=== PATIENT | female | born 1995 | race African-American/Black ===

== ENCOUNTER 2019-01-08 22:22 | Emergency (ER) ==
[2019-01-08 22:54] LABS: Urine Blood 1+ (NEG); Urine Glucose NEGATIVE (NEG); Urine Protein NEGATIVE (NEG); Urine Specific Gravity 1.025 (1.005-1.030); Urine pH 7.5 (5.0-7.0)
--- NOTE | 2019-01-08 23:28 | EDPHYS ---
Physician Documentation [facility] Name: Tracey Adam Age: 23 yrs Sex: Female : 1995 Arrival Date: 01/08/2019 Time: 22:26 Bed 7 Private MD: ED Physician Emir Alfred HPI: 01/08 23:26 This 23 yrs old Black Female presents to ER via Ambulatory with complaints of Vaginal snw Bleeding. 23:26 The patient presents with vaginal discharge, that is a small amount of. Onset: The snw symptoms/episode began/occurred suddenly, 1 week(s) ago. Modifying factors: The symptoms are alleviated by nothing, the symptoms are aggravated by nothing. Severity of symptoms: At their worst the symptoms were very mild. The patient's method of control includes nothing. The patient has experienced similar episodes in the past, multiple times. The patient has not recently seen a physician. no pain, no fever, no distress, no emergency. 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 - Social history:: Smoking status: Patient/guardian denies using tobacco, Patient/guardian denies using alcohol, street drugs. - Ebola Screening: : Patient negative for fever greater than or equal to 101.5 degrees Fahrenheit, and additional compatible Ebola Virus Disease symptoms Patient denies exposure to infectious person Patient denies travel to an Ebola-affected area in the 21 days before illness onset. ROS: 23:24 Positive for vaginal bleeding, menstrual abnormality. snw 23:24 Constitutional: Negative for fever, chills, and weight loss, Eyes: Negative for injury, pain, redness, and discharge, ENT: Negative for injury, pain, and discharge, Neck: Negative for injury, pain, and swelling, Cardiovascular: Negative for chest pain, palpitations, and edema, Respiratory: Negative for shortness of breath, cough, wheezing, and pleuritic chest pain, Abdomen/GI: Negative for abdominal pain, nausea, vomiting, diarrhea, and constipation, Back: Negative for injury and pain, MS/Extremity: Negative for injury and deformity, Skin: Negative for injury, rash, and discoloration, Neuro: Negative for headache, weakness, numbness, tingling, and seizure, Psych: Negative for depression, anxiety, suicide ideation, homicidal ideation, and hallucinations. 23:24 : Positive for usually has one period per year. No eval for infertility. Pt states she has had menses x 1 week, no pain, one pad daily. Exam: 23:24 Constitutional: This is a well developed, well nourished patient who is awake, alert, snw and in no acute distress. Head/Face: Normocephalic, atraumatic. Eyes: Pupils equal round and reactive to light, extra-ocular motions intact. Lids and lashes normal. Conjunctiva and sclera are non-icteric and not injected. Cornea within normal limits. Periorbital areas with no swelling, redness, or edema. ENT: Nares patent. No nasal discharge, no septal abnormalities noted. Tympanic membranes are normal and external auditory canals are clear. Oropharynx with no redness, swelling, or masses, exudates, or evidence of obstruction, uvula midline. Mucous membranes moist. Neck: Trachea midline, no thyromegaly or masses palpated, and no cervical lymphadenopathy. Supple, full range of motion without nuchal rigidity, or vertebral point tenderness. No Meningismus. Chest/axilla: Normal chest wall appearance and motion. Nontender with no deformity. No lesions are appreciated. Cardiovascular: Regular rate and rhythm with a normal S1 and S2. No gallops, murmurs, or rubs. Normal PMI, no JVD. No pulse deficits. Respiratory: Lungs have equal breath sounds bilaterally, clear to auscultation and percussion. No rales, rhonchi or wheezes noted. No increased work of breathing, no retractions or nasal flaring. Abdomen/GI: Soft, non-tender, with normal bowel sounds. No distension or tympany. No guarding or rebound. No evidence of tenderness throughout. Back: No spinal tenderness. No costovertebral tenderness. Full range of motion. Skin: Warm, dry with normal turgor. Normal color with no rashes, no lesions, and no evidence of cellulitis. MS/ Extremity: Pulses equal, no cyanosis. Neurovascular intact. Full, normal range of motion. Neuro: Awake and alert, GCS 15, oriented to person, place, time, and situation. Cranial nerves II-XII grossly intact. Motor strength 5/5 in all extremities. Sensory grossly intact. Cerebellar exam normal. Normal gait. Psych: Awake, alert, with orientation to person, place and time. Behavior, mood, and affect are within normal limits. Vital Signs: 22:30 BP 112 / 86; Pulse 75; Resp 18; Temp 97.5(O); Pulse Ox 100% on R/A; Weight 45.36 kg fc (R); Height 4 ft. 11 in. (149.86 cm) (R); Pain 0/10; 22:30 Body Mass Index 20.20 (45.36 kg, 149.86 cm) MDM: 22:53 Patient medically screened. snw 01/08 22:48 Order name: Urine Dipstick--Ancillary (enter results); Complete Time: 22:54 cm6 01/08 22:48 Order name: Urine --Ancillary (enter results); Complete Time: 22:54 cm6 Administered Medications: No medications were administered Disposition: 01/09 03:12 Co-signature as Attending Physician, Emir Alfred MD. rn Disposition: 01/08/19 23:27 Discharged to Home. Impression: Encounter for screening, unspecified. - Condition is Stable. - Medication Reconciliation Form, Thank You Letter, Antibiotic Education, Prescription Opioid Use form. - Follow up: Private Physician; When: 2 - 3 days; Reason: Recheck today's complaints, Continuance of care, Re-evaluation by your physician. Signatures: Dispatcher [employer]DL[employer]us Suazo, MECHANICAL PROJECT MANAGER-C MECHANICAL PROJECT MANAGER-Csnw Millie Penny RN RN Emir Alfred MD MD rn Antunez, Elena, RN RN ea Corrections: (The following items were deleted from the chart) 01/08 23:27 23:27 01/08/2019 23:27 Discharged to Home. Impression: Encounter for screening, ea unspecified. Condition is Stable. Forms are Medication Reconciliation Form, Thank You Letter, Antibiotic Education, Prescription Opioid Use. Follow up: Private Physician; When: 2 - 3 days; Reason: Recheck today's complaints, Continuance of care, Re-evaluation by your physician. snw
--- NOTE | 2019-01-08 23:28 | ER ---
Nurse's Notes [facility] Name: Tracey Adam Age: 23 yrs Sex: Female : 1995 Arrival Date: 01/08/2019 Time: 22:26 Bed 7 Private MD: Diagnosis: Encounter for screening, unspecified Presentation: 01/08 22:30 Presenting complaint: Patient states: that she has been having vaginal bleeding x 2 fc weeks. Going thru 1 pad a day. She is concerned because she only has approx 1 period a year and is usually lasts for 1 week. Last period she can remember was last August. Denies any pain. Transition of care: patient was not received from another setting of care. Onset of symptoms was December 26, 2018. Risk Assessment: Do you want to hurt yourself or someone else? Patient reports no desire to harm self or others. Initial Sepsis Screen: Does the patient meet any 2 criteria? No. Patient's initial sepsis screen is negative. Does the patient have a suspected source of infection? No. Patient's initial sepsis screen is negative. Care prior to arrival: None. 22:30 Method Of Arrival: Ambulatory 22:30 Acuity: SEAN 4 Triage Assessment: 22:30 General: Appears in no apparent distress. comfortable, slender, well groomed, Behavior fc is calm, cooperative, appropriate for age. Pain: Denies pain. EENT: No deficits noted. Neuro: Level of Consciousness is awake, alert, obeys commands, Oriented to person, place, time, situation, Appropriate for age. Cardiovascular: No deficits noted. Respiratory: No deficits noted. GI: No deficits noted. : Reports vaginal bleeding that is going thru 1 pad a day. Derm: Skin is pink, warm \T\ dry. Musculoskeletal: Circulation, motion, and sensation intact. Capillary refill < 3 seconds, Range of motion: intact in all extremities. VP SOFTWARE SUPPORT: 22:30 LMP 12/26/2018 fc 23:26 0 snw Historical: - Allergies: 22:51 No Known Allergies; fc - Home Meds: 22:51 None [Active]; fc - PMHx: 22:51 None; fc - PSHx: 22:51 None; fc - Immunization history:: Last tetanus immunization: up to date Flu vaccine is not up to date. - Social history:: Smoking status: Patient/guardian denies using tobacco, Patient/guardian denies using alcohol, street drugs. - Ebola Screening: : Patient negative for fever greater than or equal to 101.5 degrees Fahrenheit, and additional compatible Ebola Virus Disease symptoms Patient denies exposure to infectious person Patient denies travel to an Ebola-affected area in the 21 days before illness onset. Screenin:30 Abuse screen: Denies threats or abuse. Nutritional screening: No deficits noted. Tuberculosis screening: No symptoms or risk factors identified. Fall Risk None identified. Assessment: 22:55 Reassessment: Lexus QUARRY WORKER in to see and examine pt. Pt to be medically screened. 22:59 Reassessment: Pt declined treatment. fc 23:21 : Reports vaginal bleeding that is pt c/o vaginal bleeding but stated she only has a ak1 period once a year and her period was in August. pt was medically screened and declined treatment. Vital Signs: 22:30 BP 112 / 86; Pulse 75; Resp 18; Temp 97.5(O); Pulse Ox 100% on R/A; Weight 45.36 kg fc (R); Height 4 ft. 11 in. (149.86 cm) (R); Pain 0/10; 22:30 Body Mass Index 20.20 (45.36 kg, 149.86 cm) ED Course: 22:26 Patient arrived in ED. cl3 22:30 Arm band placed on Patient placed in an exam room, on a stretcher. fc 22:30 Patient has correct armband on for positive identification. Bed in low position. Call fc light in reach. 22:48 Triage completed. fc 22:52 Lexus Gomes FNP-C is PHCP. snw 22:52 Emir Alfred MD is Attending Physician. snw 23:21 Shanon Suresh, TRACE is Primary Nurse. ak1 23:21 No provider procedures requiring assistance completed. Patient did not have IV access fc during this emergency room visit. Administered Medications: No medications were administered Outcome: 23:23 Medical screen evaluation completed per provider. Patient declined treatment. ak1 23:25 Condition: stable ea 23:25 Following a medical screening exam, the patient was provided information regarding alternative care sites and resources available per registration personnel. 23:27 Discharge ordered by . snw 23:27 Patient left the ED. ea Signatures: Lexus Gomes, MANAGER PROCESS EXCELLENCE-C MANAGER PROCESS EXCELLENCE-Csnw Millie Penny, RN RN Shanon Woods RN RN ak1 Ana Maria Blackmon RN RN Doroteo Go cl3
== END 2019-01-08 23:27 | disposition home or self-care (01) ==
LOC: ER 22:22
DX: Z13.9 Encounter for screening, unspecified (principal)
CPT/HCPCS: 81003; 81025; 99281

== ENCOUNTER 2020-09-23 13:28 | Emergency (ER) | payer SELFPAY ==
--- NOTE | 2020-09-23 16:32 | ER ---
Nurse's Notes [facility] Name: Tracey Adam Age: 25 yrs Sex: Female : 1995 Arrival Date: 09/23/2020 Time: 13:31 Bed External Waiting Private MD: Diagnosis: Presentation: 09/23 13:56 Chief complaint: Lower abdominal pain that radiates to back and left groin x 4 days. hb Denies N/V/D/fever/injury/urinary s/s. Coronavirus screen: At this time, the client does not indicate any symptoms associated with coronavirus-19. Ebola Screen: No symptoms or risks identified at this time. Risk Assessment: Do you want to hurt yourself or someone else? Patient reports no desire to harm self or others. Onset of symptoms was September 19, 2020. 13:56 Method Of Arrival: Ambulatory hb 13:56 Acuity: SEAN 3 hb Historical: - Allergies: 13:58 No Known Allergies; hb - Home Meds: 13:58 None [Active]; hb - PMHx: 13:58 None; hb - PSHx: 13:58 None; hb - Immunization history:: Client reports receiving the 2nd dose of the Covid vaccine, Flu vaccine is up to date. - Social history:: Smoking status: Patient denies any tobacco usage or history of. Assessment: 16:29 Reassessment: Called to exam room. No answer. Unable to locate patient. ss 16:30 Reassessment: Registration staff states that they witnessed patient leave ER for ss reasons unknown and that she has not returned. Vital Signs: 13:56 BP 114 / 75; Pulse 68; Resp 16; Temp 98; Pulse Ox 97% on R/A; Pain 6/10; hb ED Course: 13:31 Patient arrived in ED. rg4 13:58 Triage completed. hb 13:58 Arm band placed on. hb 16:31 No provider procedures requiring assistance completed. Patient did not have IV access ss during this emergency room visit. Administered Medications: No medications were administered Outcome: 16:31 Eloped from waiting room. ss 16:31 Patient left the ED. ss Signatures: Mary Amin RN RN Tyra Lopez RN RN Brooklyn Horan rg4
[2020-09-23 16:58] VITALS: BP 114/75; TEMP 98; O2SAT 97
== END 2020-09-23 16:31 | disposition left against medical advice (07) ==
LOC: ER 13:28
DX: Z20.822 Contact with and (suspected) exposure to COVID-19 (principal)
CPT/HCPCS: 99281

== ENCOUNTER 2021-09-08 18:06 | Emergency (ER) | payer BC, SELFPAY ==
--- NOTE | 2021-09-08 19:00 | ER ---
Nurse's Notes [facility] Name: Tracey Adam Age: 26 yrs Sex: Female : 1995 Arrival Date: 09/08/2021 Time: 18:08 Bed 9 Private MD: Diagnosis: Acute serous otitis media, right ear Presentation: 09/08 18:58 Chief complaint: Patient states: Decreased hearing to bilateral ears that began 2 days ss ago. Coronavirus screen: Client denies travel out of the [place] in the last 14 days. Ebola Screen: Patient denies exposure to infectious person. Patient denies travel to an Ebola-affected area in the 21 days before illness onset. Initial Sepsis Screen: Does the patient meet any 2 criteria? No. Patient's initial sepsis screen is negative. Does the patient have a suspected source of infection? No. Patient's initial sepsis screen is negative. Risk Assessment: Do you want to hurt yourself or someone else? Patient reports no desire to harm self or others. Onset of symptoms was September 06, 2021. 18:58 Method Of Arrival: Ambulatory ss 18:58 Acuity: SEAN 5 ss Triage Assessment: 19:21 General: Appears Behavior is calm, cooperative, appropriate for age. [facility] ANALYSIS CONSULTANT: 19:21 LMP N/A - control method [facility] Historical: - Allergies: 18:59 No Known Allergies; ss - Home Meds: 18:59 None [Active]; ss - PMHx: 18:59 Ovarian cyst; ss - PSHx: 18:59 None; ss - Immunization history:: Client reports receiving the 2nd dose of the Covid vaccine. - Social history:: Smoking status: Patient denies any tobacco usage or history of. Screenin:15 Abuse screen: Denies threats or abuse. Nutritional screening: No deficits noted. [facility] Tuberculosis screening: No symptoms or risk factors identified. Fall Risk None identified. Assessment: 19:15 Reassessment: No changes from previously documented assessment. Pain: Denies pain. [facility] EENT: No deficits noted. Vital Signs: 18:58 BP 127 / 82; Pulse 84; Resp 14; Temp 98.1(TE); Pulse Ox 100% on R/A; Weight 52.62 kg; ss Height 4 ft. 11 in. (149.86 cm); Pain 0/10; 19:15 BP 122 / 68; Pulse 78; Resp 18; Pulse Ox 100% on R/A; bh1 18:58 Body Mass Index 23.43 (52.62 kg, 149.86 cm) ED Course: 18:08 Patient arrived in ED. as 18:08 uEgenio Mckay PA is PHCP. [facility] 18:08 Zenon Evans DO is Attending Physician. [facility] 18:59 Triage completed. 18:59 Arm band placed on right wrist. 19:15 Amrita Beniot, RN is Primary Nurse. 1 19:15 No apparent distress. Resting quietly. Awaiting disposition. 1 19:15 Patient has correct armband on for positive identification. 1 19:15 No provider procedures requiring assistance completed. Patient did not have IV access bh during this emergency room visit. Administered Medications: No medications were administered Medication: 19:15 VIS not applicable for this client. [facility] Outcome: 19:00 Discharge ordered by MD. [facility] 19:20 Discharged to home ambulatory. 1 19:20 Condition: good 19:20 Discharge instructions given to patient, Instructed on discharge instructions, follow up and referral plans. medication usage, Demonstrated understanding of instructions, follow-up care, medications, Prescriptions given X 1. 19:21 Patient left the ED. [facility] Signatures: Eugenio Mckay PA PA jmm Martinez, Amelia as Smirch, Shelby, TRACE RN Amrita Benoit, RN RN [facility]
--- NOTE | 2021-09-08 19:00 | EDPHYS ---
Physician Documentation [facility] Name: Tracey Adam Age: 26 yrs Sex: Female : 1995 Arrival Date: 09/08/2021 Time: 18:08 Bed 9 Private MD: ED Physician Zenon Evans HPI: 09/08 18:14 This 26 yrs old Black Female presents to ER via Unassigned with complaints of Ear Pain. jmm 18:14 The patient presents with pain. Onset: The symptoms/episode began/occurred gradually, 3 jmm day(s) ago. Modifying factors: The symptoms are alleviated by nothing, the symptoms are aggravated by nothing. Associated signs and symptoms: Pertinent positives: fever, sore throat, cough, rhinorrhea. It is unknown whether or not the patient has had similar symptoms in the past. BIN PACKER: 19:21 LMP N/A - control method [facility] Historical: - Allergies: 18:59 No Known Allergies; ss - Home Meds: 18:59 None [Active]; ss - PMHx: 18:59 Ovarian cyst; ss - PSHx: 18:59 None; ss - Immunization history:: Client reports receiving the 2nd dose of the Covid vaccine. - Social history:: Smoking status: Patient denies any tobacco usage or history of. ROS: 18:14 Constitutional: Negative for fever, chills, and weight loss. jmm 18:14 ENT: Positive for ear pain, sinus congestion, sore throat. 18:14 All other systems are negative. Exam: 18:14 Constitutional: This is a well developed, well nourished patient who is awake, alert, jmm and in no acute distress. Head/Face: atraumatic. Eyes: EOMI, no conjunctival erythema appreciated 18:14 Neck: Trachea midline, Supple Chest/axilla: Normal chest wall appearance and motion. Cardiovascular: Regular rate and rhythm. No edema appreciated Respiratory: Normal respirations, no respiratory distress appreciated Abdomen/GI: Non distended Back: Normal ROM Skin: General appearance color normal MS/ Extremity: Moves all extremities, no obvious deformities appreciated, no edema noted to the lower extremities Neuro: Awake and alert Psych: Behavior is normal, Mood is normal, Patient is cooperative and pleasant 18:14 ENT: TM's: erythema, that is moderate, on the right. Vital Signs: 18:58 BP 127 / 82; Pulse 84; Resp 14; Temp 98.1(TE); Pulse Ox 100% on R/A; Weight 52.62 kg; ss Height 4 ft. 11 in. (149.86 cm); Pain 0/10; 19:15 BP 122 / 68; Pulse 78; Resp 18; Pulse Ox 100% on R/A; bh1 18:58 Body Mass Index 23.43 (52.62 kg, 149.86 cm) MDM: 18:14 Patient medically screened. [facility] 18:58 Data reviewed: vital signs, nurses notes. Counseling: I had a detailed discussion with [facility] the patient and/or guardian regarding: the historical points, exam findings, and any diagnostic results supporting the discharge/admit diagnosis, the need for outpatient follow up, to return to the emergency department if symptoms worsen or persist or if there are any questions or concerns that arise at home. ED course: Patient is alert and non toxic in appearance in the ED. PE consistent with OM. Patient advised to follow up with pcp and otherwise given strict return precautions. patient understood and agrees with the plan of care. . Administered Medications: No medications were administered Disposition: 20:10 Co-signature as Attending Physician, Zenon Evans DO I was immediately available on-site ms3 in the Emergency Department for consultation in the care of the patient.. Disposition Summary: 09/08/21 19:00 Discharge Ordered Location: Home [facility] Condition: Stable [facility] Diagnosis - Acute serous otitis media, right ear [facility] Followup: [facility] - With: Private Physician - When: 2 - 3 days - Reason: Recheck today's complaints, Continuance of care, Re-evaluation by your physician Discharge Instructions: - Discharge Summary Sheet [facility] - Otitis Media, Adult [facility] Forms: - Medication Reconciliation Form [facility] - Thank You Letter [facility] - Antibiotic Education [facility] - Prescription Opioid Use [facility] Prescriptions: - cefdinir 300 mg Oral capsule - take 1 capsule by ORAL route every 12 hours for 10 days; 20 capsule; Refills: [facility] 0, Product Selection Permitted Signatures: Eugenio Mckay PA PA jmm Smirch, Shelby, TRACE RN Zenon Smith DO DO ms3
[2021-09-08 19:37] VITALS: TEMP 98.1; O2SAT 100
[2021-09-08 19:39] VITALS: BP 122/68
== END 2021-09-08 19:21 | disposition home or self-care (01) ==
LOC: ER 18:06
DX: H65.01 Acute serous otitis media, right ear (principal)

== ENCOUNTER 2022-02-02 18:08 | Emergency (ER) | payer SELFPAY ==
--- NOTE | 2022-02-02 19:09 | RAD REPORT ---
EXAM DESCRIPTION: CT - [id number] - 02/02/2022 6:59 pm CLINICAL HISTORY: Trauma, head and neck injury. seizure COMPARISON: No comparisons TECHNIQUE: Axial 5 mm thick images of the head were obtained. Axial 2 mm thick images of the cervical spine were obtained with sagittal and coronal reconstruction images generated and reviewed. All CT scans are performed using dose optimization technique as appropriate and may include automated exposure control or mA/KV adjustment according to patient size. FINDINGS: CT HEAD WITHOUT CONTRAST: No acute hemorrhage, hydrocephalus or extra-axial collection is identified.No areas of brain edema or midline shift. The paranasal sinuses and mastoids are clear.The calvarium is intact. CT CERVICAL SPINE WITHOUT CONTRAST: No fracture or subluxation.No prevertebral soft tissues swelling is identified. IMPRESSION: No acute intracranial or cervical spine findings.
[2022-02-02] MEDS ORDERED: NA CHLORIDE 0.9% 1,000 ML ONE (19:42)
[2022-02-02 20:06] LABS: Absolute Lymphocytes (CBC) 0.6 K/uL (0.7-4.9); Hematocrit 43.2 % (36.0-45.0); Lymphocytes % 7.4 % (15.3-44.8); MCV 93.6 fL (80-100); MPV 7.6 fL (7.6-11.3); RBC Red Blood Cell Count 4.62 M/uL (3.86-4.86)
[2022-02-02 20:14] LABS: Albumin 3.7 g/dL (3.4-5.0); Bilirubin Total 0.4 mg/dL (0.2-1.0)
[2022-02-02 20:56] LABS: SARS-COV-2 RT PCR NEGATIVE (NEGATIVE)
--- NOTE | 2022-02-02 22:13 | ER ---
Nurse's Notes [facility] Name: Tracey Adam Age: 26 yrs Sex: Female : 1995 Arrival Date: 02/02/2022 Time: 18:09 Bed 2 Private MD: Diagnosis: Diarrhea, unspecified;Other seizures;Weakness Presentation: 02/02 18:13 Chief complaint: EMS states: WITNESSED FALL WITH SZ LIKE ACTIVITY AT [facility]. N/V/D bp SINCE AM. Coronavirus screen: At this time, the client does not indicate any symptoms associated with coronavirus-19. Ebola Screen: No symptoms or risks identified at this time. Initial Sepsis Screen: Does the patient meet any 2 criteria? HR > 90 bpm. No. Patient's initial sepsis screen is negative. Does the patient have a suspected source of infection? No. Patient's initial sepsis screen is negative. Risk Assessment: Do you want to hurt yourself or someone else? Patient reports no desire to harm self or others. Onset of symptoms is unknown. Care prior to arrival: Medication(s) given: zofran 4 mg, IV initiated. 20 GA, in the right forearm, Glucose check: 112. 18:13 Method Of Arrival: EMS: [facility] bp 18:13 Acuity: SEAN 3 bp Triage Assessment: 18:14 General: Appears in no apparent distress. Behavior is calm, cooperative, appropriate bp for age. Pain: Denies pain. EENT: No deficits noted. Neuro: Level of Consciousness is awake, alert, obeys commands, Oriented to Appropriate for age. Cardiovascular: No deficits noted. Respiratory: No deficits noted. GI: No signs and/or symptoms were reported involving the gastrointestinal system. : No signs and/or symptoms were reported regarding the genitourinary system. Derm: No deficits noted. Musculoskeletal: No deficits noted. 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 - Social history:: Smoking status: unknown. - Family history:: not pertinent. Screenin:15 Abuse screen: Denies threats or abuse. Denies injuries from another. Nutritional bp screening: No deficits noted. Tuberculosis screening: No symptoms or risk factors identified. Fall Risk None identified. Assessment: 18:15 General: SEE TRIAGE NOTE. bp 20:00 Reassessment: No changes from previously documented assessment. Patient and/or family kl updated on plan of care and expected duration. Pain level reassessed. Patient is alert, oriented x 3, equal unlabored respirations, skin warm/dry/pink. Patient states feeling better. Patient states symptoms have improved. 21:00 Reassessment: No changes from previously documented assessment. Patient and/or family kl updated on plan of care and expected duration. Pain level reassessed. Patient is alert, oriented x 3, equal unlabored respirations, skin warm/dry/pink. Patient states feeling better. Patient states symptoms have improved. Vital Signs: 18:13 BP 104 / 70; Pulse 110; Resp 18; Temp 98; Pulse Ox 98% ; bp 22:58 BP 114 / 78; Pulse 62; Resp 16; Pulse Ox 99% on R/A; Pain 0/10; kl ED Course: 18:09 Patient arrived in ED. cecile 18:10 Florian Barnhart MD is Attending Physician. cecile 18:12 Todd Weaver, RN is Primary Nurse. bp 18:14 Triage completed. bp 18:14 Arm band placed on. bp 18:15 Patient has correct armband on for positive identification. Bed in low position. Call bp light in reach. Side rails up X2. Adult w/ patient. Client placed on continuous cardiac and pulse oximetry monitoring. NIBP monitoring applied. 18:15 Maintain EMS IV. Dressing intact. Good blood return noted. Site clean \T\ dry. Gauge \T\ bp site: 20 R FA. 19:00 CT Head C Spine In Process Unspecified. EDMS 19:49 Florian Potter PA is PHCP. cp 21:40 No apparent distress. ambulatory gait steady to bathroom. kl 22:59 No provider procedures requiring assistance completed. IV discontinued, intact, kl bleeding controlled, No redness/swelling at site. Pressure dressing applied. Administered Medications: 19:47 Drug: NS 0.9% 1000 ml Route: IV; Rate: 1 bolus; Site: right forearm; bp Medication: 18:15 VIS not applicable for this client. bp Outcome: 22:13 Discharge ordered by . cp 22:59 Discharged to home ambulatory. dean 22:59 Condition: improved 22:59 Discharge instructions given to patient, Instructed on discharge instructions, follow up and referral plans. medication usage, Demonstrated understanding of instructions, follow-up care, medications, Prescriptions given X 1. 23:00 Patient left the ED. Signatures: Dispatcher [employer] EDRamila Abdullahi, TRACE RN Florian Martines MD MD cha Page, Corey, PA PA Todd Marinelli, RN RN bp
--- NOTE | 2022-02-02 22:13 | EDPHYS ---
Physician Documentation [facility] Name: Tracey Adam Age: 26 yrs Sex: Female : 1995 Arrival Date: 02/02/2022 Time: 18:09 Bed 2 Private MD: ED Physician Florian Barnhart HPI: 02/02 18:25 This 26 yrs old Black Female presents to ER via EMS with complaints of Seizure. cecile 18:25 The patient presents with a history of multiple seizures, a total of 3. Character of cecile seizure(s): Loss of consciousness: the patient experienced loss of consciousness, Motor activity: generalized, shaking all over. Seizure onset: just prior to arrival. Context: the seizure(s) was witnessed, by a bystander. Seizure Hx: the patient has no previous seizure history. Associated injury: The patient did not suffer any apparent associated injury. 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 - Social history:: Smoking status: unknown. - Family history:: not pertinent. ROS: 18:25 Constitutional: Negative for fever, chills, and weight loss, Eyes: Negative for injury, cecile pain, redness, and discharge, ENT: Negative for injury, pain, and discharge, Neck: Negative for injury, pain, and swelling, Cardiovascular: Negative for chest pain, palpitations, and edema, Respiratory: Negative for shortness of breath, cough, wheezing, and pleuritic chest pain, Abdomen/GI: Negative for abdominal pain, nausea, vomiting, diarrhea, and constipation, Back: Negative for injury and pain, : Negative for injury, bleeding, discharge, and swelling, MS/Extremity: Negative for injury and deformity, Skin: Negative for injury, rash, and discoloration, Psych: Negative for depression, anxiety, suicide ideation, homicidal ideation, and hallucinations, Allergy/Immunology: Negative for hives, rash, and allergies, Endocrine: Negative for neck swelling, polydipsia, polyuria, polyphagia, and marked weight changes, Hematologic/Lymphatic: Negative for swollen nodes, abnormal bleeding, and unusual bruising. 18:25 Abdomen/GI: Positive for diarrhea. 18:25 Neuro: Positive for seizure activity, weakness. Exam: 18:25 Constitutional: This is a well developed, well nourished patient who is awake, alert, cecile and in no acute distress. Head/Face: Normocephalic, atraumatic. Eyes: Pupils equal round and reactive to light, extra-ocular motions intact. Lids and lashes normal. Conjunctiva and sclera are non-icteric and not injected. Cornea within normal limits. Periorbital areas with no swelling, redness, or edema. ENT: Nares patent. No nasal discharge, no septal abnormalities noted. Tympanic membranes are normal and external auditory canals are clear. Oropharynx with no redness, swelling, or masses, exudates, or evidence of obstruction, uvula midline. Mucous membranes moist. Neck: Trachea midline, no thyromegaly or masses palpated, and no cervical lymphadenopathy. Supple, full range of motion without nuchal rigidity, or vertebral point tenderness. No Meningismus. Chest/axilla: Normal chest wall appearance and motion. Nontender with no deformity. No lesions are appreciated. Respiratory: Lungs have equal breath sounds bilaterally, clear to auscultation and percussion. No rales, rhonchi or wheezes noted. No increased work of breathing, no retractions or nasal flaring. Abdomen/GI: Soft, non-tender, with normal bowel sounds. No distension or tympany. No guarding or rebound. No evidence of tenderness throughout. Back: No spinal tenderness. No costovertebral tenderness. Full range of motion. Skin: Warm, dry with normal turgor. Normal color with no rashes, no lesions, and no evidence of cellulitis. MS/ Extremity: Pulses equal, no cyanosis. Neurovascular intact. Full, normal range of motion. Neuro: Awake and alert, GCS 15, oriented to person, place, time, and situation. Cranial nerves II-XII grossly intact. Motor strength 5/5 in all extremities. Sensory grossly intact. Cerebellar exam normal. Normal gait. Psych: Awake, alert, with orientation to person, place and time. Behavior, mood, and affect are within normal limits. 18:25 Cardiovascular: Rate: tachycardic, actual rate is 112 bpm, Rhythm: regular, Pulses: no pulse deficits are appreciated, Heart sounds: normal, Edema: is not appreciated. 19:33 ECG was reviewed by the Attending Physician. Vital Signs: 18:13 BP 104 / 70; Pulse 110; Resp 18; Temp 98; Pulse Ox 98% ; bp 22:58 BP 114 / 78; Pulse 62; Resp 16; Pulse Ox 99% on R/A; Pain 0/10; kl MDM: 18:10 Patient medically screened. cecile 18:28 Differential diagnosis: cerebral vascular accident, drug overdose, cardiac arrhythmia, cecile seizure. Data reviewed: vital signs, nurses notes, lab test result(s), radiologic studies, CT scan. Data interpreted: laboratory monitor: rate is 110 beats/min, rhythm is regular, Pulse oximetry: on room air is 98 %. Test interpretation: by ED physician or midlevel provider: ECG. Counseling: I had a detailed discussion with the patient and/or guardian regarding: the historical points, exam findings, and any diagnostic results supporting the discharge/admit diagnosis, lab results, radiology results, the need for outpatient follow up, for definitive care, a family practitioner. 22:13 ED course: VSS. No seizure activity observed while monitoring patient in ED. Will cp discharge to home for continued monitoring. 02/02 18:16 Order name: CBC with Diff; Complete Time: 20:[address] [facility] 02/02 20:21 Interpretation: Normal except: PATTIE% 85.3; LYM% 7.4; LYMA 0.6. 02/02 18:16 Order name: Comprehensive Metabolic Panel; Complete Time: 20:[address] [facility] 02/02 20:21 Interpretation: Normal except: GFR 89; A/G 0.9; GLOB 4.3. 02/02 18:16 Order name: Lipase; Complete Time: 20:[address] [facility] 02/02 20:21 Interpretation: Reviewed. 02/02 18:16 Order name: COVID-19/FLU A+B [facility] 02/02 18:16 Order name: CT Head C Spine; Complete Time: 19:[address] [facility] 02/02 19:33 Interpretation: Reviewed report. 02/02 18:16 Order name: EKG; Complete Time: 18:[address] [facility] 02/02 18:16 Order name: EKG - Nurse/Tech; Complete Time: 19:[address] [facility] 02/02 18:16 Order name: Seizure Precautions [facility] 02/02 19:00 Order name: PO challenge: gatorade; Complete Time: 22:[address] [facility] EC:33 Rate is 95 beats/min. Rhythm is regular. NH interval is normal. QRS interval is normal. cp QT interval is normal. T waves are Inverted in leads aVR, V2, V3. Interpreted by me. Reviewed by me. Administered Medications: 19:47 Drug: NS 0.9% 1000 ml Route: IV; Rate: 1 bolus; Site: right forearm; bp Disposition Summary: 02/02/22 22:13 Discharge Ordered Location: Home cp Problem: new cp Symptoms: have improved cp Condition: Stable cp Diagnosis - Diarrhea, unspecified cp - Other seizures cp - Weakness cp Followup: cecile - With: Private Physician - When: 2 - 3 days - Reason: Recheck today's complaints, Continuance of care, Re-evaluation by your physician Discharge Instructions: - Discharge Summary Sheet cecile - Food Choices to Help Relieve Diarrhea, Adult cecile - Diarrhea, Adult cecile - Seizure, Adult cecile - Weakness cecile - Fatigue cecile - Seizure, Adult, [id number] cecile - Diarrhea, Adult, [id number] cecile - Weakness, [id number] [facility] Forms: - Medication Reconciliation Form cp - Thank You Letter cp - Antibiotic Education cp - Prescription Opioid Use cp Prescriptions: - Zofran 4 mg Oral Tablet - take 1 tablet by ORAL route every 12 hours As needed; 20 tablet; Refills: 0, [facility] Product Selection Permitted Addendum: 02/05/2022 08:03 Co-signature as Attending Physician, Florian Barnhart MD I agree with the assessment and c wills plan of care. Signatures: Dispatcher [employer] Florian Arita MD MD cha Page, Corey PA PA Todd Marinelli, RN RN bp Corrections: (The following items were deleted from the chart) 02/02 20:21 20:21 Normal except: GFR 89. cp cp
[2022-02-02 23:46] VITALS: TEMP 98
[2022-02-02 23:47] VITALS: BP 114/78; O2SAT 99
--- NOTE | 2022-02-03 07:49 | EKG ---
Test Date: 2022-02-02 Test Time: 19:26:54 Traffic Signal Mechanic: BRIAN MEASUREMENT RESULTS: Intervals: Rate: 95 MI: 146 QRSD: 66 QT: 324 QTc: 407 [place]: P: 72 MI: 146 QRS: 71 T: 53 INTERPRETIVE STATEMENTS: Normal sinus rhythm with sinus arrhythmia Possible Left atrial enlargement Borderline ECG No previous ECG available for comparison Electronically Signed On 02-03-22 07:48:50 SPONGE DIVER by Dani Moreno
== END 2022-02-02 23:00 | disposition home or self-care (01) ==
LOC: ER 18:08
DX: R56.9 Unspecified convulsions (principal); R53.1 Weakness; R19.7 Diarrhea, unspecified
CPT/HCPCS: 0240U; 36415; 70450; 72125; 80053; 83690; 85025; 93005; 99284; J7030